=== PATIENT | male | born 1970 | race Caucasian/White ===

== ENCOUNTER 2018-08-17 05:44 | Observation (INO) ==
--- NOTE | 2018-07-20 12:58 | Anesthesiology Consultation ---
Date of Service July 20, 2018 Assessment & Plan (1) Encounter for pre-operative examination: Plan: - Check BSG AM DOS - Patient with situs inversus Chart Review Chart Review: Acceptable Risk for Surgery and Patient seen in Pre Admission Testing Teaching & Discussion Pre-Anesthesia Teaching/Discussion Notes: Instructed NPO after midnight before surgery,except medications with 15 cc of water. Medication instructions provided according to the PAT guidelines. History Surgery Operation Date: 08/15/18 10:05 Proposed Procedures p C6 Corpectomy, C5-C7 Instrumented Fusion - Dany Anglin DO Height/Weight Height: 5 ft 7 in Weight: 107.9 kg Allergies Allergy/AdvReac Type Severity Reaction Status Date / Time No Known Allergies Allergy Verified 07/13/18 10:30 Medications Home Medications Medication Instructions Recorded Confirmed Last Taken Plexus Supplement 1 cap PO QAM 07/13/18 07/13/18 Unknown aspirin 81 mg PO QAM 07/13/18 07/13/18 Unknown atorvastatin [Lipitor] 40 mg PO QAM 07/13/18 07/13/18 Unknown esomeprazole magnesium [Nexium] 40 mg PO QAM 07/13/18 07/13/18 Unknown multivitamin 1 cap PO QAM 07/13/18 07/13/18 Unknown pioglitazone [Actos] 45 mg PO QAM 07/13/18 07/13/18 Unknown sertraline [Zoloft] 50 mg PO QAM 07/13/18 07/13/18 Unknown Past Medical History Medical History Anxiety Diabetes mellitus, type 2 NIDDM GERD (gastroesophageal reflux disease) CONTROLLED Hyperlipidemia Situs inversus Past Surgical History Surgical History History of esophagogastroduodenoscopy (EGD) History of herniorrhaphy RIGHT INGUINAL HERNIA REPAIR History of open reduction and internal fixation (ORIF) procedure RIGHT ANKLE Hx of sinus surgery REPAIR OF DEVIATED SEPTUM Past Anesthesia History No Hx of Anesthesia Complications (EXCEPT PONV) and No Family Hx of Anesthesia Complications History of PONV Yes (X 1 EPISODE; NO ISSUES WHEN PRETREATED) Motion Sickness Screening History of Motion Sickness: No STOP BANG Total 2 Social History Smoking Status: Never smoker Do You Dip or Chew Tobacco: Yes (<1/2 CAN/DAY- ADVISED NOT TO CHEW AM DOS) Hx Alcohol Use: Yes Alcohol type: beer alcohol intake frequency: holidays/special occasions only Hx Substance Use: No substance use type: does not use Exercise / Class Metabolic Activity II 4-5 Yardwork/Stairs/Walk up hill Review of Systems Reflux controlled. Cervicalgia with LUE radiculopathy/neuropathy. URI symptoms improving. Patient denies chest pain, shortness of breath, dyspnea on exertion, wheezing, palpitations. Physical Exam Vital Signs VITALS BP 133/83 P 71 TEMP 98.2 SP02 96%RA RESP 18 Full neck and c-spine range of motion. Full TMJ range of motion. TMD 3 finger breaths Mallampati Score 3 Dentition: cap on molar; upper/lower permanent retainer Lungs: clear throughout to auscultation Cardiac: regular rate and rhythm, no murmurs noted Spine: normal Carotid arteries: negative bruit Extremities: no edema Testing Electrocardiogram Date: 07/20/18 SR at 70bpm. Right super axis deviation. iRBBB. Prolonged QT. Known dextrocardia (right sided EKG). Chest X-Ray Date: 07/20/18 Dextrocardia. Minimal atelectasis left base. Laboratory Results 07/20/18 13:06 07/20/18 13:06 Blood Type A Positive 07/20/18 13:06 Antibody Screen NEGATIVE 07/20/18 13:06 PT 10.4 Seconds (9.0-12.0) 07/20/18 13:06 INR 1.0 (0.9-1.1) 07/20/18 13:06 APTT 26.6 Seconds (21.0-31.0) 07/20/18 13:06 Urine Color Yellow 07/20/18 13:06 Urine Appearance Clear (Clear) 07/20/18 13:06 Urine pH 6.0 (4.5-7.5) 07/20/18 13:06 Ur Specific Addison 1.010 (1.000-1.030) 07/20/18 13:06 Urine Protein Negative (Negative) 07/20/18 13:06 Urine Glucose (UA) Negative (Negative) 07/20/18 13:06 Urine Ketones Trace (Negative) H 07/20/18 13:06 Urine Nitrite Negative (Negative) 07/20/18 13:06 Ur Leukocyte Esterase Negative (Negative) 07/20/18 13:06
--- NOTE | 2018-07-20 13:02 | PAT Medication Instructions ---
Medication Instructions Date of Service July 20, 2018 Home Medications Plexus Supplement 1 cap PO QAM aspirin 81 mg PO QAM atorvastatin [Lipitor] 40 mg PO QAM esomeprazole magnesium [Nexium] 40 mg PO QAM multivitamin 1 cap PO QAM pioglitazone [Actos] 45 mg PO QAM sertraline [Zoloft] 50 mg PO QAM ASK your prescriber and surgeon aspirin 81 mg PO QAM STOP taking 2 weeks before surgery Plexus Supplement 1 cap PO QAM DO NOT take the morning of surgery multivitamin 1 cap PO QAM pioglitazone [Actos] 45 mg PO QAM Take morning of surgery With a small sip of water, OTHERWISE NOTHING TO EAT OR DRINK AFTER MIDNIGHT: atorvastatin [Lipitor] 40 mg PO QAM esomeprazole magnesium [Nexium] 40 mg PO QAM sertraline [Zoloft] 50 mg PO QAM Other Notes If you have any questions please call us at [phone] or [phone] or [phone] or [phone]
[2018-07-20 13:56] LABS: Basophils # (auto) 0.02 K/uL (0-0.2); Basophils % (auto) 0.2 %; Eosinophils # (auto) 0.19 K/uL (0-0.5); Eosinophils % (auto) 1.7 %; Hematocrit (blood only) 40.9 % (42-52); Hemoglobin 13.9 g/dL (14.0-18.0); Immature Granulocytes # (auto) 0.03 K/uL (0.00-0.02); Immature Granulocytes % (auto) 0.3 %; Lymphocytes # (auto) 2.27 K/uL (1.2-3.4); Lymphocytes % (auto) 20.7 %; Mean Corpuscular Volume 84.9 fL (80-100); Mean Platelet Volume 10.2 fL (7.4-10.4); Monocytes # (auto) 1.13 K/uL (0.11-0.59); Monocytes % (auto) 10.3 %; Neutrophils # (auto) 7.35 K/uL (1.4-6.5); Neutrophils % (auto) 66.8 %; Platelet Count 254 K/uL (130-400); RDW Coefficient of Variation 13.2 % (11.5-14.5); RDW Standard Deviation 40.8 fL (36.4-46.3); Red Blood Count 4.82 M/uL (4.7-6.1); White Blood Count 10.99 K/uL (4.8-10.8)
--- NOTE | 2018-07-20 13:58 | XRay Report ---
XR chest Pre-admission PA/Lat CLINICAL HISTORY: pat preoperative evaluation COMPARISON STUDY: No previous studies for comparison. FINDINGS: Dextrocardia. Minimal atelectasis left base. Lungs otherwise appear clear. No focal infiltr ate. IMPRESSION: Dextrocardia. No acute process. The above report was generated using voice recognition software. It may contain grammatical, syntax or spelling errors. Electronically signed by: Ajit Pina M.D. 07/20/2018 1:56 PM
[2018-07-20 14:04] LABS: BUN Creatinine Ratio 12.1 (10-20); Calcium 8.8 mg/dl (8.5-10.1); Creatinine Clr Calc Pharmacy 121.7 ml/min; Est GFR (Non-African American) 101.8; Potassium 3.4 mmol/L (3.5-5.1)
[2018-07-20 14:13] LABS: Appearance Urine Clear (Clear); Bilirubin Urine Negative (Negative); Blood Urine Negative (Negative); Color Urine Yellow; Glucose Urine UA Negative (Negative); Ketones Urine Trace (Negative); Leukocyte Esterase Urine Negative (Negative); Nitrite Urine Negative (Negative); Protein Urine Negative (Negative); Urobilinogen Urine Negative (Negative)
[2018-07-20 14:28] LABS: Partial Thromboplastin Time 26.6 Seconds (21.0-31.0); Prothrombin Time 10.4 Seconds (9.0-12.0)
[~2018-08-17 05:44] MED LIST: ACETAMINOPHEN 500 MG TAB PO SCH; CEFAZOLIN 2000MG 2,000 MG/15 ML SYR IV SCH; CeleBREX 200 MG CAP PO SCH; GABAPENTIN 300 MG x 3 PO SCH; LR 15ML/HR IV SCH
[2018-08-17] MEDS ORDERED: CEFAZOLIN 2,000 MG/15 ML IV PUSH IV ONE (06:21)
[2018-08-17] MEDS ORDERED: ACETAMINOPHEN 500 MG TAB ONE (06:21)
[2018-08-17] MEDS ORDERED: GABAPENTIN 300 MG CAP ONE (06:22)
[2018-08-17] MEDS ORDERED: CeleBREX 200 MG CAP ONE (06:22)
[2018-08-17] MEDS ORDERED: HYDROmorphone INJ 2 MG/ML SYR/VIAL ONE (06:29)
[2018-08-17] MEDS ORDERED: MIDAZOLAM HCL 1 MG/ML 2ML VIAL ONE (06:29)
[2018-08-17] MEDS ORDERED: fentaNYL citrate 100 MCG/2 ML VIAL ONE ×3 (06:29→09:07)
[2018-08-17] MEDS ORDERED: LIDOCAINE HCL 2% 2 ML VIAL/AMP(20MG/ML) INFIL ONE (06:30)
[2018-08-17] MEDS ORDERED: GLYCOPYRROLATE 0.2 MG/ML VIAL ONE (06:30)
[2018-08-17] MEDS ORDERED: PROPOFOL IV EMULSION 10 MG/ML 20 ML VIAL IV ONE ×2 (06:30→09:23)
[2018-08-17] MEDS ORDERED: NEOSTIGMINE METHYLSULFATE 1 MG/ML 10ML VIAL ONE (06:30)
[2018-08-17] MEDS ORDERED: ROCURONIUM BROMIDE 10 MG/ML 5 ML VIAL ONE (06:30)
[2018-08-17] MEDS ORDERED: DEXAMETHASONE SOD INJ 4 MG/ML VIAL ONE (06:30)
[2018-08-17] MEDS ORDERED: ONDANSETRON INJ 2 MG/ML 2 ML VIAL ONE ×2 (06:30→08:38)
[2018-08-17] MEDS ORDERED: BACITRACIN INJ 50,000 UNIT VIAL ONE (07:02)
[2018-08-17] MEDS ORDERED: SCOPOLAMINE 1.5 MG TDSY TD ONE (07:08)
[2018-08-17] MEDS ORDERED: LABETALOL HCL IV 5 MG/ML 20ML IV PRN (07:09)
[2018-08-17] MEDS ORDERED: PHENYLEPHRINE 100MCG/ML 5ML SYR IV PRN (07:09)
[2018-08-17] MEDS ORDERED: HYDROmorphone INJ 1 MG/ML SYRINGE IV PRN (07:09)
[2018-08-17] MEDS ORDERED: fentaNYL citrate 100 MCG/2 ML VIAL IV PRN (07:09)
[2018-08-17] MEDS ORDERED: ONDANSETRON INJ 2 MG/ML 2 ML VIAL IV PRN ×2 (07:09→11:23)
[2018-08-17] MEDS ORDERED: ePHEDrine sulfate 50 MG/ML AMP IV PRN (07:09)
[2018-08-17] MEDS ORDERED: ATROPINE SULFATE 0.1 MG/ML 10ML SYR IV PRN (07:09)
[2018-08-17] MEDS ORDERED: MEPERIDINE HCL 25 MG/ML CARP IV PRN (07:09)
[2018-08-17] MEDS: CHECK SCOPOLAMINE PATCH PLACEMENT SCH ×2 (07:24→16:48)
--- NOTE | 2018-08-17 07:44 | History & Physical Bridge Note ---
Date of Service August 17, 2018 History & Physical Bridge Note I have examined the patient, reviewed the History & Physical and in the interval since the performance of the History & Physical I have noted the following changes of clinical significance: no changes noted
--- NOTE | 2018-08-17 07:44 | History & Physical Report ---
Date of Service August 17, 2018 Assessment & Plan (1) Cervical stenosis of spinal canal: C6 corpectomy with instrumented fusion C5-C7 Present on Admission?: Yes History of Present Illness Chief Complaint: Neck and arm pain Primary Care Provider: Luisana Minaya PA-C This is a 47-year-old male with neck and arm pain. After failing extensive course of nonoperative care is here for surgical intervention. Allergies Allergy/AdvReac Type Severity Reaction Status Date / Time No Known Allergies Allergy Verified 08/17/18 06:08 Home Medications Home Medications Medication Instructions Recorded Confirmed Type Plexus Supplement 1 cap PO QAM 07/13/18 08/17/18 History aspirin 81 mg PO QAM 07/13/18 08/17/18 History atorvastatin [Lipitor] 40 mg PO QAM 07/13/18 08/17/18 History esomeprazole magnesium [Nexium] 40 mg PO QAM 07/13/18 08/17/18 History multivitamin 1 cap PO QAM 07/13/18 08/17/18 History pioglitazone [Actos] 45 mg PO QAM 07/13/18 08/17/18 History sertraline [Zoloft] 50 mg PO QAM 07/13/18 08/17/18 History Past Med/Surg History Social History Current Living Situation: Spouse Other Information That Helps Us Care for You: No Feels Safe at Home: Yes Safety Concerns: Feels Safe At This Time Smoking Status: Never smoker Do You Dip or Chew Tobacco: Yes (<1/2 CAN/DAY- ADVISED NOT TO CHEW AM DOS) Hx Alcohol Use: Yes Alcohol type: beer Alcohol Intake Frequency: holidays/ special occasions only Hx Substance Use: No Beliefs That Will Affect Care: None Preferred Language: Bruneian Communication Ability: Effective Silo Erector Required: No Physical Exam 2 Vital Signs (Past 24 Hours): Last Vital Signs Temp 36.7 C 08/17/18 06:00 Pulse 84 08/17/18 06:00 Resp 18 08/17/18 06:00 BP 158/98 H 08/17/18 06:00 Pulse Ox 94 08/17/18 06:00 Results & Data Medications Administered Miscellaneous (Check Scopolamine Patch Placement) 1 ea N/A QS GENE Stop: 08/20/18 07:00 Last Admin: 08/17/18 07:24 Dose: 1 ea
[2018-08-17] MEDS ORDERED: raNITIdine HCl 25 MG/ML VIAL ONE (08:38)
[2018-08-17] MEDS ORDERED: METOCLOPRAMIDE HCL INJ 5 MG/ML 2 ML VIAL ONE (08:38)
[2018-08-17] MEDS ORDERED: ePHEDrine sulfate 50 MG/ML SYR ONE (09:05)
--- NOTE | 2018-08-17 09:34 | Operative Report ---
Post Operative Report Pre & Post Diagnosis Operation Date: 08/17/18 07:45 Pre-Op Diagnosis: Cervical spinal stenosis with radiculopathy Post-Op Diagnosis: Same Procedure Operation Date: 08/17/18 07:45 Actual Procedures #1 anterior cervical corpectomy C6 with bilateral foraminotomies. #2 anterior cervical arthrodesis C5-C7. #3 placed a peek 27 mm cage C5-C7. #4 placement of locally harvested morselized autograft combined with DBM and interbody cage. #5 application penn plate and screws from C5-C7. Surgeon Dany Anglin, Enterprise Resource Planner Ethan Moody Estimated Blood Loss 10 Findings Consistent with Post-Op Diagnosis Specimens None Description of Procedure Patient was met with preoperatively case discussed all questions addressed. After informed consent obtained patient was taken to the operative suite underwent intubation and placed in a spine position of the head [place] medical director/head team physician. All bony prominences well-padded eyes inspected to ensure no external pressure placed upon him. This point the anterior cervical spine was prepped and draped in normal sterile fashion. Sharp dissection with the assistance of bipolar electrocautery was performed down to and exposing the anterior cervical spine from C5-C7. Self-retaining retractors placed. Verified my position with fluoroscopy. Complete discectomy at C5-6 was performed up to the uncovertebral joints bilaterally followed by C6-7. And then placed cast bar pin and see 5 and C7 to date to distract across the C6 vertebral body. A complete lobectomy of C6 was performed including removal of all posterior annular fibers and longitudinal ligament and bilateral foraminotomies. If complete decompression in place burred to subcortical B bone and a 27 mm peek cage filled with locally harvested morselized autograft and DBM tamped into position. Distraction apparatus was removed and a penn plate and screws applied with the assistance of fluoroscopy. Incision was then copious irrigated explored to ensure no damage to surrounding structures remaining bleeding. 10 round GOVIND drain inserted. Incision was then closed with 2 Vicryl in a fashion of 4 Monocryl for Fransen closure Steri-Strip sterile dressings placed. Patient will continue to PACU stable condition. Please note Ethan Moody was present at the entire procedure involved in patient positioning complex portions of the surgeon Fransen closure. I attest to the content of the Intraoperative Record and any orders documented therein. Any exceptions are noted below.
--- NOTE | 2018-08-17 09:53 | Fluoroscopy Report ---
FL cervical 2-3V HISTORY: 47 years-old Male C6 CORPECTOMY C5-C7 FUSION COMPARISON: None available TECHNIQUE: 3 spot fluoroscopic images of the cervical spine were obtained utilizing 10.4 seconds fluo roscopy time FINDINGS: The lower cervical spine is suboptimally visualized secondary to positioning. Anterior fusion hardwar e at what appears to be the C5-C7 levels. Alignment is suboptimally visualized on this study. Multile abhijeet spondylitic spurring with facet arthrosis. Endotracheal tube is noted along with drainage cathete r. IMPRESSION: Fluoroscopic assistance as above. Please see operative report for further details. The above report was generated using voice recognition software. It may contain grammatical, syntax o r spelling errors. Electronically signed by: James Kelley M.D. 08/17/2018 9:52 AM
[2018-08-17] MEDS ORDERED: METOPROLOL TARTRATE 1 MG/ML VIAL IV ONE (10:12)
[2018-08-17] MEDS ORDERED: METOPROLOL TARTRATE 1 MG/ML VIAL IV STA (10:18)
[2018-08-17] MEDS ORDERED: FLOSEAL HEMOSTATIC MATRIX 10ML TOP ONE (10:56)
[2018-08-17] MEDS ORDERED: ESMOLOL HCL INJ 10 MG/ML 10ML VIAL IV ONE (10:57)
--- NOTE | 2018-08-17 11:04 | Anesthesiology Progress Note ---
Date of Service August 17, 2018 Anesthesia Post Procedure Vital Signs Vital Signs: Temp Pulse Pulse Pulse Resp BP BP 08/17/18 10:51 84 13 132/75 08/17/18 10:50 95 H 19 08/17/18 10:46 87 15 132/80 08/17/18 10:45 98 H 16 08/17/18 10:42 96 H 16 08/17/18 10:41 87 16 135/80 08/17/18 10:40 89 14 08/17/18 10:35 84 16 129/75 08/17/18 10:32 93 H 16 08/17/18 10:31 90 14 135/71 08/17/18 10:30 93 H 14 08/17/18 10:26 96 H 16 125/77 08/17/18 10:25 97 H 12 08/17/18 10:21 87 14 129/76 08/17/18 10:20 82 14 08/17/18 10:17 99 H 20 08/17/18 10:16 104 H 15 136/81 08/17/18 10:15 107 H 144/88 H 08/17/18 10:10 112 H 18 144/88 H 08/17/18 10:05 96 H 15 131/75 08/17/18 10:01 93 H 13 121/70 08/17/18 10:00 93 H 15 08/17/18 09:56 101 H 13 133/66 08/17/18 09:52 36.6 C 97 H 88 13 118/68 118/68 08/17/18 06:00 36.7 C 84 18 158/98 H Pulse Ox 08/17/18 10:51 95 08/17/18 10:50 97 08/17/18 10:46 94 08/17/18 10:45 93 08/17/18 10:42 96 08/17/18 10:41 93 08/17/18 10:40 95 08/17/18 10:35 94 08/17/18 10:32 96 08/17/18 10:31 98 08/17/18 10:30 98 08/17/18 10:26 99 08/17/18 10:25 99 08/17/18 10:21 95 08/17/18 10:20 96 08/17/18 10:17 94 08/17/18 10:16 94 08/17/18 10:15 08/17/18 10:10 96 08/17/18 10:05 98 08/17/18 10:01 99 08/17/18 10:00 97 08/17/18 09:56 98 08/17/18 09:52 98 08/17/18 06:00 94 Pain Intensity Anterior Neck: Pain Intensity: 0 Notes Mental Status: alert / awake / arousable Patient Amnestic to Procedure: Yes Nausea / Vomiting: adequately controlled Pain: adequately controlled Airway Patency, RR, SpO2: stable & adequate BP & HR: stable & adequate Hydration State: stable & adequate Anesthetic Complications: no major complications apparent and Pt Satisfied with anesthetic care Notes: The patient was NPO as per ASA guidelines preoperatively. Upon induction during mask ventilation, the patient was noted to cough and had a milky white substance with no particles in his mouth. He was immediately suctioned and intubated with the Glidescope. Breath sounds were clear bilaterally. A suction catheter was placed down the ETT and minimal white fluid was suctioned out. A nasogastric tube was placed which suctioned 50 ml of white fluid (appeared to be milk) out of the stomach with no particles noted. The patient's SpO2 remained 99 and he was otherwise stable. The procedure proceeded uneventfully and the patient was extubated without any problems. The patient has been awake and stable in the PACU. His SpO2 is 95 on 4 L NC compared to preop SpO2 of 94 on room air. His lungs are clear to auscultation and the patient has no coughs or wheezing. Postop BSG was 140. Dr. Anglin is aware of the possible aspiration and consulted medicine. I spoke to Dr. Seymour who will follow the patient on the floor. Dr. Murray and Dr. Mccrary are aware of the patient and will follow up with the patient this weekend. I spoke to both the patient and his . They are to watch for any signs of neck hematoma (neck swelling, difficutly breathing) and pneumonia ( fever, wheezing, cough). The patient will have continous pulse oximetry monitoring on the floor.
[2018-08-17] MEDS ORDERED: DiphenhydrAMINE HCL 50 MG/ML VIAL IV PRN (11:23)
[2018-08-17] MEDS ORDERED: DO NOT ADMINISTER FLU VACCINE PRN (11:23)
[2018-08-17] MEDS ORDERED: RACEPINEPHRINE 2.25% NEBU SOLN 0.5 ML VIAL INH PRN (11:23)
[2018-08-17] MEDS ORDERED: LORazepam 0.5 MG TAB PO PRN (11:23)
[2018-08-17] MEDS ORDERED: NALOXONE HCL 0.4 MG/1 ML VIAL/CARP IV PRN (11:23)
[2018-08-17] MEDS ORDERED: SCOPOLAMINE 1.5 MG TDSY TD SCH (11:23)
[2018-08-17] MEDS ORDERED: MAGNESIUM HYDROXIDE SUSP 30 ML UDC PO PRN (11:23)
[2018-08-17] MEDS ORDERED: ACETAMINOPHEN 1,000 MG/100 ML VIAL IV PRN (11:23)
[2018-08-17] MEDS ORDERED: DEXAMETHASONE SOD PHOSPHATE 8 MG in SYRINGE 0 ML IV PRN (11:23)
[2018-08-17] MEDS ORDERED: DO NOT ADMINISTER PNEUMOCOCCAL VACCINE PRN (11:23)
[2018-08-17] MEDS ORDERED: OXYCODONE HCL IR 5 MG TAB (IMMEDIATE RELEASE) PO PRN (11:23)
[2018-08-17] MEDS ORDERED: HYDROmorphone INJ 0.5 MG/0.5 ML SYR IV PRN (11:23)
[2018-08-17] MEDS ORDERED: LORazepam 0.5 MG/1 ML VIAL IV PRN (11:23)
[2018-08-17] MEDS ORDERED: ALBUTEROL HFA INHALER 8.5 GM ONE (11:28)
[2018-08-17] MEDS ORDERED: SODIUM CHLORIDE 0.9% 1000ML 1,000 ML IV SCH (12:00)
--- NOTE | 2018-08-17 13:33 | Consultation ---
Date of Consultation August 17, 2018 Assessment & Plan (1) S/P cervical discectomy: Post op day# 0 S/P anterior cervical corpectomy C6 with bilateral foraminotomies by Dr Anglin EBL#10ml Possible aspiration during sedation -unasyn to cover possible aspiration -pain management per ortho -wound management per ortho -PT/OT as appropriate -DVT prophylaxis per ortho -incentive spirometry -monitor H&H for acute blood loss anemia (2) Diabetes mellitus, type II: Post op glucose: 170. Pt received dexamethasone 12mg, will expect higher BSG's. -hold actos -HA1c in AM -Novolog, Lantus sliding scale per protocol (3) GERD (gastroesophageal reflux disease): -continue PPI (4) Anxiety: -continue sertraline (5) HLD (hyperlipidemia): -continue atorvastatin (6) Situs inversus: Heart sounds auscultated on left side of chest Denies CP, SOB DVT Prophylaxis -SCDs per ortho Follows with Luisana Minaya PA-C for routine care Pt was seen with Dr Rolon. See addendum Supervising Physician Co-Signing Physician Notes Attending addendum He is a 47 y/o M with PMH situs inversis, DM II, GERD, HLD, anxiety, depression status post ACDF today He was noted to have aspiration likely peroperatively He denies any complaints during the examination Denies any shortness of breath but has minimal cough No chest pain or no palpitation. No abdominal pain nausea and/or vomiting On examination Lying in bed comfortably with cervical collar in situ Hemodynamically stable Chest-minimal crackles left base Heart-S1-S2, regular but has dextro cardia Abdomen-benign Admission labs and imaging studies noted Has aspiration pneumonia status post ACDF Started on intravenous Unasyn likely transition to oral Augmentin Agree with assessment and plan as outlined above by Lana Rolon History of Present Illness Reason for Consultation: post op medical management Attending Physician: Dany Anglin DO History of Present Illness Pt is 47 y/o M with PMH situs inversis, DM II, GERD, HLD, anxiety, depression seen in medical consultation after anterior cervical corpectomy C6 with bilateral foraminotomies today by Dr Anglin. Anesthesia reports possible aspiration milky substance during intubation today. Post op pt doing well. He is on 4L oxygen NC with sats 95%. Pre-op was 94% on RA. Denies any cough, SOB, CP. Reports pain controlled. Denies any extremity paresthesias. Ate clear liquid diet for lunch and tolerated. Denies nausea or vomiting. Urinated post- op. Last BM yesterday. Denies fever/chills, ODONNELL, dizziness, CP, SOB, sore throat , choking, abdominal pain, extremity edema, rashes, urinary symptoms. Allergies Allergy/AdvReac Type Severity Reaction Status Date / Time No Known Allergies Allergy Verified 08/17/18 06:08 Home Medications Home Medications Medication Instructions Recorded Confirmed Type Plexus Supplement 1 cap PO QAM 07/13/18 08/17/18 History aspirin 81 mg PO QAM 07/13/18 08/17/18 History atorvastatin [Lipitor] 40 mg PO QAM 07/13/18 08/17/18 History esomeprazole magnesium [Nexium] 40 mg PO QAM 07/13/18 08/17/18 History multivitamin 1 cap PO QAM 07/13/18 08/17/18 History pioglitazone [Actos] 45 mg PO QAM 07/13/18 08/17/18 History sertraline [Zoloft] 50 mg PO QAM 07/13/18 08/17/18 History Patient History Medical History Anxiety (Chronic) GERD (gastroesophageal reflux disease) (Chronic) CONTROLLED Situs inversus (Chronic) HLD (hyperlipidemia) (Chronic) Diabetes mellitus, type II (Chronic) Surgical History History of herniorrhaphy (Resolved) RIGHT INGUINAL HERNIA REPAIR History of esophagogastroduodenoscopy (EGD) (Resolved) History of open reduction and internal fixation (ORIF) procedure (Resolved) RIGHT ANKLE Hx of sinus surgery (Resolved) REPAIR OF DEVIATED SEPTUM Social History Current Living Situation: Spouse Other Information That Helps Us Care for You: No Feels Safe at Home: Yes Safety Concerns: Feels Safe At This Time Smoking Status: Never smoker Do You Dip or Chew Tobacco: Yes (<1/2 CAN/DAY- ADVISED NOT TO CHEW AM DOS) Hx Alcohol Use: Yes Alcohol type: beer Alcohol Intake Frequency: holidays/ special occasions only Hx Substance Use: No Beliefs That Will Affect Care: None Preferred Language: Khmer Communication Ability: Effective Hand Finisher Required: No Review of Systems As per HPI. 10 other systems reviewed and negative Physical Exam 2 Vital Signs (Past 24 Hours): Last Vital Signs Temp 36.5 C 08/17/18 13:15 Pulse 105 H 08/17/18 13:15 Resp 18 08/17/18 13:15 BP 126/74 08/17/18 13:15 Pulse Ox 96 08/17/18 13:15 Physical Exam: General: no distress, WDWN Head: normocephalic, atraumatic Eyes: conjunctiva non-injected, anicteric ENT: normal inspection external ears, nose, mucous membranes moist Neck: supple, trachea midline, surgical dressing anterior neck is dry with GOVIND drain Lungs: clear, no respiratory distress, no wheezing/rhonchi/rales CV: RRR, no murmur no pretibial edema Abd: normal BS, soft, non-tender Ext: no cyanosis, no calf tenderness, distal pulses intact bilateral upper and lower extremities, sensation to light touch intact, brisk capillary refill Neuro: A&O x 3, no focal deficits noted, normal affect Skin: warm, dry
[2018-08-17] MEDS ORDERED: AMPICILLIN/SULBACTAM SOD 3,000 MG in 0.9 % SODIUM CHLORIDE 100 ML IV STA (13:53)
[2018-08-17] MEDS ORDERED: GLUCOSE 40% GEL 15 GM TUBE PO PRN (13:59)
[2018-08-17] MEDS ORDERED: GLUCOSE 10 TABS/TUBE PO PRN (13:59)
[2018-08-17] MEDS ORDERED: GLUCAGON FOR INJ 1 MG VIAL SQ PRN (13:59)
[2018-08-17] MEDS ORDERED: DEXTROSE 50% 50 ML SYRINGE IV PRN (13:59)
[2018-08-17] MEDS ORDERED: CARBOHYDRATES FOR HYPOGLYCEMIA PO PRN (13:59)
[2018-08-17] MEDS: INSULIN GLARGINE SOLOSTAR 100 UNITS/ML 3 ML PEN SC SCH (15:44)
[2018-08-17] MEDS ORDERED: CEFAZOLIN 2000MG 2,000 MG/15 ML SYR IV SCH (16:00)
[2018-08-17] MEDS ORDERED: CHECK SCOPOLAMINE PATCH PLACEMENT SCH (16:00)
[2018-08-17] MEDS: INSULIN ASPART 100 UNITS/ML 3 ML PEN SC SCH ×2 (18:23→21:13)
[2018-08-17] MEDS: AMPICILLIN/SULBACTAM SOD 3,000 MG in 0.9 % SODIUM CHLORIDE 100 ML IV SCH (20:21)
[2018-08-17] MEDS: DOCUSATE SODIUM 100 MG CAP PO SCH (21:13)
[2018-08-18] MEDS: INSULIN GLARGINE SOLOSTAR 100 UNITS/ML 3 ML PEN SC SCH ×2 (00:18→08:42)
[2018-08-18] MEDS: CHECK SCOPOLAMINE PATCH PLACEMENT SCH ×2 (00:24→08:39)
[2018-08-18] MEDS: AMPICILLIN/SULBACTAM SOD 3,000 MG in 0.9 % SODIUM CHLORIDE 100 ML IV SCH ×2 (02:19→08:49)
[2018-08-18 05:55] LABS: Hematocrit (blood only) 38.2 % (42-52); Hemoglobin 12.6 g/dL (14.0-18.0); Mean Corpuscular Volume 87.2 fL (80-100); Mean Platelet Volume 10.1 fL (7.4-10.4); Platelet Count 263 K/uL (130-400); RDW Coefficient of Variation 13.3 % (11.5-14.5); RDW Standard Deviation 42.7 fL (36.4-46.3); Red Blood Count 4.38 M/uL (4.7-6.1); White Blood Count 14.86 K/uL (4.8-10.8)
[2018-08-18 06:23] LABS: BUN Creatinine Ratio 12.2 (10-20); Calcium 8.2 mg/dl (8.5-10.1); Creatinine Clr Calc Pharmacy 130.8 ml/min; Est GFR (African American) 121.6; Est GFR (Non-African American) 104.9; Potassium 3.5 mmol/L (3.5-5.1)
[2018-08-18 06:50] LABS: Estimated Average Glucose 131 mg/dl; Hemoglobin A1C 6.2 % (4.5-5.6)
--- NOTE | 2018-08-18 08:12 | Anesthesiology Progress Note ---
Date of Service August 18, 2018 Anesthesia Post Procedure Vital Signs Vital Signs: Temp Pulse Pulse Pulse Resp BP BP 08/18/18 07:25 66 16 08/18/18 07:10 08/18/18 06:15 36.7 C 68 16 137/82 08/18/18 04:15 36.7 C 68 18 124/76 08/18/18 03:16 67 14 08/18/18 02:15 36.8 C 73 14 131/78 08/18/18 00:15 36.5 C 77 16 125/74 08/17/18 23:27 81 14 08/17/18 22:15 37 C 83 18 135/79 08/17/18 20:15 36.9 C 99 H 18 149/75 H 08/17/18 20:00 4 L 18 08/17/18 18:15 36.4 C L 99 H 16 136/77 08/17/18 16:15 36.7 C 91 H 16 138/79 08/17/18 15:39 104 H 16 08/17/18 14:15 36.6 C 80 16 124/71 08/17/18 13:15 36.5 C 105 H 18 126/74 08/17/18 12:15 36.7 C 92 H 14 129/73 08/17/18 11:45 36.5 C 99 H 16 131/76 08/17/18 11:37 91 H 14 08/17/18 11:15 36.6 C 101 H 16 135/77 08/17/18 11:05 99 H 15 08/17/18 11:01 90 15 132/72 08/17/18 11:00 91 H 15 08/17/18 10:56 91 H 16 129/78 08/17/18 10:55 98 H 14 08/17/18 10:52 92 H 16 08/17/18 10:51 84 13 132/75 08/17/18 10:50 95 H 19 08/17/18 10:46 87 15 132/80 08/17/18 10:45 98 H 16 08/17/18 10:42 96 H 16 08/17/18 10:41 87 16 135/80 08/17/18 10:40 89 14 08/17/18 10:35 84 16 129/75 08/17/18 10:32 93 H 16 08/17/18 10:31 90 14 135/71 08/17/18 10:30 93 H 14 08/17/18 10:26 96 H 16 125/77 08/17/18 10:25 97 H 12 08/17/18 10:21 87 14 129/76 08/17/18 10:20 82 14 08/17/18 10:17 99 H 20 08/17/18 10:16 104 H 15 136/81 08/17/18 10:15 107 H 144/88 H 08/17/18 10:10 112 H 18 144/88 H 08/17/18 10:05 96 H 15 131/75 08/17/18 10:01 93 H 13 121/70 08/17/18 10:00 93 H 15 08/17/18 09:56 101 H 13 133/66 08/17/18 09:52 36.6 C 97 H 88 13 118/68 118/68 Pulse Ox Pulse Ox 08/18/18 07:25 95 08/18/18 07:10 94 08/18/18 06:15 96 08/18/18 04:15 97 08/18/18 03:16 95 08/18/18 02:15 96 08/18/18 00:15 97 08/17/18 23:27 98 08/17/18 22:15 98 08/17/18 20:15 97 08/17/18 20:00 96 08/17/18 18:15 97 08/17/18 16:15 95 08/17/18 15:39 96 08/17/18 14:15 95 08/17/18 13:15 96 08/17/18 12:15 95 08/17/18 11:45 95 08/17/18 11:37 96 08/17/18 11:15 96 08/17/18 11:05 94 08/17/18 11:01 94 08/17/18 11:00 97 08/17/18 10:56 94 08/17/18 10:55 98 08/17/18 10:52 93 08/17/18 10:51 95 08/17/18 10:50 97 08/17/18 10:46 94 08/17/18 10:45 93 08/17/18 10:42 96 08/17/18 10:41 93 08/17/18 10:40 95 08/17/18 10:35 94 08/17/18 10:32 96 08/17/18 10:31 98 08/17/18 10:30 98 08/17/18 10:26 99 08/17/18 10:25 99 08/17/18 10:21 95 08/17/18 10:20 96 08/17/18 10:17 94 08/17/18 10:16 94 08/17/18 10:15 08/17/18 10:10 96 08/17/18 10:05 98 08/17/18 10:01 99 08/17/18 10:00 97 08/17/18 09:56 98 08/17/18 09:52 98 Pain Intensity Anterior Neck: Pain Intensity: 2 Throat: Pain Intensity: 1 Notes Mental Status: alert / awake / arousable and participated in evaluation Patient Amnestic to Procedure: Yes Nausea / Vomiting: adequately controlled Pain: adequately controlled Airway Patency, RR, SpO2: stable & adequate BP & HR: stable & adequate Hydration State: stable & adequate Anesthetic Complications: no major complications apparent and Pt Satisfied with anesthetic care Notes: Pt reportedly had milky white emesis during induction of anesthesia yesterday morning. Pt reports no breathing difficulties, no cough/wheezing, or fevers over night. O2 sat stable at 95-96% on RA. Lung sounds clear B/L on auscultation. Pt reports no anesthesia related issues and was happy with his care.
[2018-08-18 08:37] VITALS: BP 138/84; TEMP 98.2
[2018-08-18] MEDS: DOCUSATE SODIUM 100 MG CAP PO SCH (08:39)
[2018-08-18] MEDS: INSULIN ASPART 100 UNITS/ML 3 ML PEN SC SCH (08:42)
[2018-08-18] MEDS ORDERED: MULTIVITAMIN TAB PO SCH (09:00)
[2018-08-18] MEDS ORDERED: SERTRALINE HCL 50 MG TABLET PO SCH (09:00)
[2018-08-18] MEDS ORDERED: PIOGLITAZONE HCL 15 MG TAB PO SCH (09:00)
[2018-08-18] MEDS ORDERED: ASPIRIN 81 MG ECTAB PO SCH (09:00)
[2018-08-18] MEDS ORDERED: ATORVASTATIN 40 MG TAB PO SCH (09:00)
[2018-08-18] MEDS ORDERED: PANTOprazole 40 MG TAB PO SCH (09:00)
--- NOTE | 2018-08-18 09:56 | Discharge Summary ---
Date of Service August 18, 2018 Admission HPI Per Admitting Provider This is a 47-year-old male with neck and arm pain. After failing extensive course of nonoperative care is here for surgical intervention. Principal Diagnosis Cervical spinal stenosis with radiculopathy Discharge Data Allergies Allergy/AdvReac Type Severity Reaction Status Date / Time No Known Allergies Allergy Verified 08/17/18 06:08 Consultations 08/17/18 09:45 Consult Hospitalist Routine Procedures Performed Operation Date: 08/17/18 07:45 Actual Procedures p Anterior C6 Corpectomy, C5-C7 Instrumented Fusion(Not Applicable) - Dany Anglin DO Ordered Studies 08/17/18 07:45 FL cervical 2-3V Routine FL fluoroscopy <1hr Routine Hospital Course (1) S/P cervical discectomy: Patient underwent anterior cervical corpectomy and fusion tolerated this well was taken to the orthopedic floor postoperative. Postop day #1 arm symptoms are markedly improved. He is swallowing without difficulty. No hoarseness. Subsequently discharged home. Discharge orders and instructions found in the chart for further review. Total Time Total Time Spent Total Time Spent (In Minutes): Not applicable Discharge Plan Discharge Items Patient Disposition: Home - Self-Care Reason For Visit: Other Cervical Disc Displacement, Unspecified Discharge Diagnosis: cervical stenosis Discharge Goals: Decrease discomfort Activity: Per 'Additional Instructions' section Non-emergency contact: Primary Care Provider Call non-emergency contact if: you have any medication questions Follow-up/Referrals: Luisana Minaya PA-C [Primary Care Provider] - Diet: Regular Addtl Provider Instructions: ACTIVITY RECOMMENDATIONS: SELF CARE INSTRUCTIONS AFTER CERVICAL FUSIONS 1. No smoking. Smoking drastically decreases the chance of a solid fusion. 2. No bending, lifting more than 5 pounds, or twisting (roll like a log when turning in bed). 3. You may shower 3 days after surgery. Thoroughly dry wound. Do not soak in the tub. 4. Cervical collar: Must be worn at all times including sleeping. You may remove the brace only to bath, eat and if you are sitting in a recliner. 5. Please walk as much as you can for exercise. Gradually increase the distance that you walk as your endurance increases. SPECIAL CARE INSTRUCTIONS: VERY IMPORTANT TO READ AND REVIEW A. Do not take any anti-inflammatory medications (i.e. Indocin, Advil, Aspirin, Naprosyn, Aleve, Motrin, etc.) as these may inhibit the chance of a solid fusion. Tylenol is okay to take. B. Your surgical incision has been closed with a cosmetic suture under the skin that will dissolve in about 6 weeks. In 14 days, you can use a pair of clean scissors and cut the suture that is left outside of the skin at the ends of your incision. C. Complications are uncommon, but please contact us if you have any signs or symptoms of: 1. wound infection (fever higher than 102.5 degrees F, redness, separation of wound, drainage, or increasing pain from the incision) 2. blood clots in legs (pain, swelling, redness and warmth in legs) 3. urinary tract infection (fever higher than 102.5 degrees, burning upon urination or increased frequency of urination) 4. nerve problems (inability to walk on your toes or heels, numbness, loss of bowel or bladder control) 5. any other symptoms that concern you. D. Please call the office at if you have any concerns or questions about your operation or recovery. MANAGING PAIN AFTER SPINAL SURGERY 1. Narcotic medication is intended for short-term use and will be provided for surgical pain. Surgical pain usually lasts for a period of 4-6 weeks. Narcotic medication includes Percocet, Vicodin, Darvocet, Tylenol #3 or Lortab. 2. Longer-term pain is more appropriately treated with non-narcotic medication such as Tylenol ES. 3. Muscle spasm is not appropriately treated with narcotics. Muscle relaxers such as Soma, Flexeril or Skelaxin can be used along with Tylenol ES. 4. Remember that we all live with some "aches and pains". This is not unusual or uncommon after an injury or as we get older. 5. We will provide appropriate medication within the normal guidelines of their prescribed use. We will also be very cautious and aware of potential abuse and extended duration of patients' medication needs. 6. Please allow 2-3 days to process refills. Prescriptions will not be mailed but must be picked up at the office. FOLLOW UP VISIT: Keep your scheduled follow-up appointment. Any questions, please call the office at . Prescriptions: New oxycodone 5 mg Tablet 5 mg PO Q4H PRN (Reason: Pain) Qty: 30 RF: 0 Continue atorvastatin [Lipitor] 40 mg Tablet 40 mg PO QAM RF: 0 pioglitazone [Actos] 45 mg Tablet 45 mg PO QAM RF: 0 esomeprazole magnesium [Nexium] 40 mg Capsule,Delayed Release(Dr/Ec) 40 mg PO QAM RF: 0 aspirin 81 mg Tablet,Chewable 81 mg PO QAM RF: 0 multivitamin Capsule 1 cap PO QAM RF: 0 sertraline [Zoloft] 50 mg Tablet 50 mg PO QAM RF: 0 Plexus Supplement 1 cap PO QAM RF: 0 Stand-Alone Forms: [facility] Discharge Orders: Discharge Order (Routine); Ordered 08/18/18 Ordered By: Dany Anglin Admission Data Admit Date/Time: 08/17/18 09:38 Attending Provider: Dany Anglin Admit Provider: Dany Anglin Primary Care Provider: Luisana Minaya Other Providers: Edilberto Walters Service: Surgical Services
[2018-08-18 10:59] VITALS: PULSE 73; O2SAT 93
--- NOTE | 2018-08-18 11:12 | Hospitalist Progress Note ---
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 Disposition: As per Ortho Follows with Luisana Minaya PA-C for routine care Subjective Patient is seen and examined at bedside Neck pain is controlled Arm numbness is much improved Denies chest pain, dyspnea, dizziness Offers no other complaints Leukocytosis likely 2/2 dexamethasone Physical Exam 2 Vital Signs (Past 24 Hours): Last Vital Signs Temp 36.8 C 08/18/18 09:48 Pulse 73 08/18/18 10:58 Resp 16 08/18/18 10:58 BP 138/84 08/18/18 09:48 Pulse Ox 93 08/18/18 10:58 Physical Exam: Physical Exam: Vitals signs as noted above General Appearance:Moderately built and nourished, no apparent distress Head: normocephalic, Atraumatic Eyes: normal inspection, EOMI Neck: supple, Trachea midline, +Neck collar + drain Respiratory/Chest: Normal breath sounds, CTA Cardiovascular: S1, S2, No murmur Abdomen/GI:Soft, Non tender, Bowel sounds present Extremities/Musculoskelatal:normal inspection, no edema Neurologic/Psych:AAOX3, grossly no focal neurological deficits Skin: normal color, warm Results & Data Laboratory Results Short CBC 08/18/18 Range/Units 05:00 WBC 14.86 H (4.8-10.8) K/uL Hgb 12.6 L (14.0-18.0) g/dL Hct 38.2 L (42-52) % Plt Count 263 (130-400) K/uL BMP 08/18/18 05:00 Sodium 142 Potassium 3.5 Chloride 108 H Carbon Dioxide 28 BUN 10 Creatinine 0.80 Glucose 90 Calcium 8.2 L
[2018-08-19] MEDS ORDERED: BISACODYL 5 MG TABEC PO PRN (09:37)
[2018-08-19] MEDS ORDERED: POLYETHYLENE (MIRALAX) 17 GM PACK PO PRN (09:37)
== END 2018-08-18 11:49 | disposition home or self-care (01) ==
LOC: ASU 05:44 → 3E 05:44